=== PATIENT | male | born 1950 | race Caucasian/White ===

== ENCOUNTER → 2017-03-09 | Outpatient (CLI) | payer SELFPAY | PROVIDERS: Family Provider Nurse Practitioner Family; Visit Provider Nurse Practitioner Family | DX: N40.1 Benign prostatic hyperplasia with lower urinary tract symptoms (principal) ==

== ENCOUNTER 2017-11-14 11:37 | Outpatient (CLI) | payer SELFPAY ==
[2017-11-14 12:16] VITALS: BMI 19.8
[2017-11-14 12:30] LABS: Microscopic, Urine URINE MICROSCOPIC (MICROSCOPIC)
[2017-11-14 12:34] LABS: Appearance,Urine CLEAR (Clear); Bilirubin,Urine Negative (Negative); Blood, Urine 3+ (Negative); Color,Urine YELLOW (Yellow); Glucose,Urine (UA) Negative (Negative); Ketones,Urine Negative (Negative); Leukocyte Esterase,Urine Negative (Negative); Nitrate,Urine Negative (Negative); PH,Urine 5.5 (5.0-8.5); Protein,Urine Negative (Negative); Specific Gravity, Urine 1.025 (1.005-1.030); Urobilinogen,Urine 0.2 EU/dl (0.2)
[2017-11-14 12:46] LABS: Bacteria,Urine 4+ /lpf; RBC,Urine 20-50 #/hpf (0-3); Squamous Epithelial Cell,Urine Occasional #/hpf (0-5); WBC,Urine 20-50 #/hpf (0-3)
--- NOTE | 2017-11-14 13:01 | PC.NURSE ---
11/14/[id number]-mbfnu catheter placed to bsd with minimal resistance. immediate return of urine noted in bag and placed to bsd-several small blood clots noted in output of urine. allowed catheter to remain to drain for approx 15 min, total amount of urine drained was 450 cc. secured catheter tubing to the pt's upper inner thigh to keep tubing from pulling and large bag switched over to leg bag for pt comfort and convenience-secured to leg using elastic straps. education on the proper care of the catheter reviewed with pt and at bs. instructed pt on cleaning and emptying, as well as switching over to each type of bag. pt/ verbalized understanding of these instructions.
== END 2017-11-14 12:20 | disposition home or self-care (01) ==
LOC: INF 11:40
PROVIDERS: PCP Nurse Practitioner Family; Visit Provider Nurse Practitioner Family
DX: R33.9 Retention of urine, unspecified (principal); C61 Malignant neoplasm of prostate
CPT/HCPCS: 81001; 87086; G0463

== ENCOUNTER → 2018-09-27 14:21 | Outpatient (CLI) | payer SELFPAY ==
--- NOTE | 2018-09-27 14:35 | CT_ITS ---
CT abdomen pelvis w con CLINICAL INDICATION: Abdominal pain, prostate cancer, severe lower abdominal pain ITS.REASON: H/O PROSTATE CA ORDERING PHYSICIAN: Elena Panchal APRN PATIENT AGE: 68 years COMPARISON: None TECHNIQUE: Contrast Used:75ml Optiray 350 Oral Contrast: None Axial images obtained with sagittal and coronal reformats. All CT scans at the facility use one or more dose reduction, viz: automated exposure control, ma/kV adjustment per patient size (including targeted exams where dose is matched to indication, i.e. head), or iterative reconstruction technique. FINDINGS: There is a medium sized right pleural effusion with atelectatic changes in the right lower lobe. Scattered nodular densities are present in the right middle and right lower lobe suspicious for metastatic disease. There are coronary artery calcifications. There is a small left pleural effusion with atelectatic changes in the left lower lobe. Pneumoperitoneum is noted with a moderate amount of free intraperitoneal air. There is generalized ascites. Moderate amount of feces is present throughout the colon. No focal liver lesion. The spleen, adrenal glands, pancreas, and kidneys have an unremarkable appearance. The appendix is not clearly delineated. There is some mixed gas and soft tissue density in the right paracolic gutter. Prostate is enlarged with coarse calcification. There is mild thickening of the urinary bladder wall. There is diffuse ascites in the pelvis. 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 IMPRESSION: 1. Pneumoperitoneum and system with hollow viscus rupture. 2. Generalized ascites with bilateral pleural effusions and bibasilar atelectatic change. The right effusion is larger than the left. There is mild diffuse subcutaneous edema. 3. Pulmonary and skeletal metastasis Critical result called to Carol Hull on 09/27/2018 4:00 PM.
[2018-09-27 15:05] LABS: Blood Urea Nitrogen 22 mg/dL (7-18); Creatinine,Serum 0.84 mg/dL (0.70-1.30); Estimated Glomerular Filt Rate 91 ml/min (>60); GFR (African American) 110 ML/MIN (>60)
== END ==
PROVIDERS: PCP Nurse Practitioner Family; Visit Provider Nurse Practitioner Family
DX: Z01.818 Encounter for other preprocedural examination (principal); Z85.46 Personal history of malignant neoplasm of prostate
CPT/HCPCS: 36415; 74177; 82565; 84520; Q9967